=== PATIENT | female | born 1960 | race Caucasian/White ===

== ENCOUNTER → 2020-05-19 14:55 | Outpatient (CLI) | payer OTHER, SELFPAY ==
--- NOTE | ~2020-05-19 | MR_ITS ---
EXAMINATION: MR shoulder RT wo con DATE: 05/19/2020 15:52 INDICATION: Anterior and posterior right shoulder pain. TECHNIQUE: Magnetic resonance imaging (MRI) of the right shoulder was performed without intravenous c ontrast. Sequences included axial PD-weighted FS FSE, coronal oblique PD-weighted FS FSE and T2-weigh dolores FS FSE, and sagittal oblique T2-weighted FS FSE and T1-weighted FSE. COMPARISON: None. FINDINGS: Coracoacromial arch: The acromion undersurface is flat in morphology (type I). There is severe acromioclavicular joint ost eoarthritis including inferiorly directed osteophytes. There is mild subacromial/subdeltoid bursitis. Rotator cuff: There is mild supraspinatus tendinopathy and moderate infraspinatus tendinopathy. Teres minor tendon is normal. There is mild subscapularis tendinopathy. No tear. There is no asymmetric fatty atrophy of the rotator cuff muscle bellies. Biceps tendon and glenoid labrum: Biceps tendon is in bicipital groove. There is mild intra-articular biceps tendinopathy. There is deg eneration of the superior labrum without well-defined tear. Fluid: There is no glenohumeral joint effusion. Bones/cartilage: Humeral head cartilage is normal. There is shallow partial-thickness cartilage loss of posterior tom oid with subchondral edema-like marrow signal intensity and subchondral cysts. IMPRESSION: 1. Moderate rotator cuff tendinopathy. No tear. 2. Mild glenoid chondrosis. 3. Mild subacromial/subdeltoid bursitis. 4. Severe acromioclavicular joint osteoarthritis. 5. Mild intra-articular biceps tendinopathy. Reviewed, dictated and finalized at location A.
== END ==
PROVIDERS: PCP Nurse Practitioner Family; Visit Provider Nurse Practitioner Family
DX: M75.51 Bursitis of right shoulder (principal); M19.011 Primary osteoarthritis, right shoulder
CPT/HCPCS: 73221

== ENCOUNTER 2023-08-23 14:54 | Outpatient (CLI) | payer OTHER, SELFPAY ==
[2023-08-23 17:25] LABS: Free T4 Free Thyroxine 1.24 ng/mL (0.78-2.19)
[2023-08-29 06:54] LABS: Thyroid Peroxidase Antibodies <1 IU/mL (<9)
== END 2023-08-23 14:55 | disposition home or self-care (01) ==
LOC: ANHWCLAB 14:56
PROVIDERS: PCP Nurse Practitioner Family; Visit Provider Internal Medicine Endocrinology, Diabetes & Metabolism
DX: E04.1 Nontoxic single thyroid nodule (principal)
CPT/HCPCS: 36415; 84439; 84443; 86376

== ENCOUNTER 2023-09-06 12:45 | Outpatient (CLI) | payer OTHER, SELFPAY ==
--- NOTE | ~2023-09-06 | US_ITS ---
EXAMINATION: US FNA w image guidance DATE: 09/06/2023 13:41 INDICATION: Right thyroid nodule TECHNIQUE: A time-out was performed to verify the patient's name, date of , and procedure to be performed . The procedure and its benefits and risks were discussed with the patient. Risks specifically discus sed included bleeding and infection. The patient understood the risks and agreed to proceed. The neck was prepped and draped in the usual sterile manner. 5 mL 1% lidocaine was used for local anesthesia . 6 passes were made with a 25G needle into the lesion. Appropriate needle location was documented with continuous sonographic guidance. A sterile bandage was applied. There were no immediate compli cations. FINDINGS: Grayscale ultrasound images demonstrate biopsy needles advanced into a 2.0 cm TI RADS 5 solid hypoech oic nodule with punctate internal echogenic foci in the inferior right thyroid. IMPRESSION: 1. Successful ultrasound-guided fine needle aspiration of 2.0 cm TI RADS 5 right thyroid nodule. Reviewed, dictated and finalized at location A. METALS ENGRAVER HAND IMPRESSION: 1. Successful ultrasound-guided fine needle aspiration of 2.0 cm TI RADS 5 rig ht thyroid nodule.
== END 2023-09-06 12:46 | disposition home or self-care (01) ==
PROVIDERS: PCP Nurse Practitioner Family; Visit Provider Internal Medicine Endocrinology, Diabetes & Metabolism
DX: E04.1 Nontoxic single thyroid nodule (principal)
CPT/HCPCS: 10005; 88173; 88305

== ENCOUNTER 2024-03-28 13:17 | Outpatient (CLI) | payer OTHER, SELFPAY ==
[2024-03-28 15:17] LABS: Free T4 Free Thyroxine 1.17 ng/mL (0.78-2.19)
== END 2024-03-28 13:18 | disposition home or self-care (01) ==
LOC: ANHWCLAB 13:19
PROVIDERS: PCP Nurse Practitioner Family; Visit Provider Internal Medicine Endocrinology, Diabetes & Metabolism
DX: E04.1 Nontoxic single thyroid nodule (principal)
CPT/HCPCS: 36415; 84439; 84443

== ENCOUNTER 2025-04-23 15:54 | Inpatient (IN) | payer OTHER, SELFPAY ==
[2025-04-23] VITALS (17 sets, daily range): BP systolic 98–162; BP diastolic 58–88; PULSE 71–106; RESP 14–26; TEMP 36.4–36.8; O2SAT 96–100; BMI 24.5
--- NOTE | 2025-04-23 15:56 | ECG_ITS ---
Test Date: 2025-04-23 15:59:45 Measurements Intervals [place] Rate: 103 P: 72 MN: 138 QRS: 62 QRSD: 75 T: 50 QT: 336 QTc: 440 Interpretive Statements SINUS TACHYCARDIA LEFT ATRIAL ENLARGEMENT HIGH ST ELEVATION MYOCARDIAL INFARCT- ACUTE RECIPROCAL ST DEPRESSION IN INFERIOR LEADS BASELINE ARTIFACT- I, II, AVR, AVL, AVF, V1-V6 ABNORMAL ECG No previous ECG available for comparison Electronically Signed On 04-23-2025 16:28:51 CDT by Augusto Agarwal D.O.
--- NOTE | 2025-04-23 16:04 | PC.NURSE ---
[facility] [address] [facility] [address] [facility] 1603
--- NOTE | 2025-04-23 16:09 | ED_ITS ---
HPI - Chest Pain General Chief Complaint: Chest Pain Stated Complaint: chest pain Time Seen by Provider: 04/23/25 16:09 Source: patient Mode of arrival: ambulatory Limitations: no limitations History of Present Illness HPI narrative: Patient presents with a substernal chest pain. She states this started Monday and has persisted. This has never happened before. Does not follow with a slab installer. It is nonradiating. She thought perhaps she was dehydrated. Nauseated and vomiting. Had been diaphoretic. Endorses being a little short of breath but because has noticed increase in thick salivary secretions, with clear/white sputum. Cardiac risk factors HTN: No HLD: No DM: No Obese: No Smoker: No (stated upon HPI - listed as current in Social history) Personal history MO/TIA/CVA: No Fam Hx MO in first degree relative <65yo: Father and brother (57 and 56 respectively) Related Data Home Medications ?Medication ?Instructions ?Recorded ?Confirmed ?Last Taken ?Type ibuprofen 400 mg tablet 800 mg PO TID PRN pain 08/23/23 04/23/25 04/22/25 History multivitamin (Multiple Vitamins 1 tablet PO DAILY 08/23/23 04/23/25 Unknown History tablet) alprazolam 2 mg tablet (Xanax) 2 mg PO QHS PRN anxiety 03/28/24 04/23/25 03/31/25 History cyclobenzaprine 10 mg tablet 10 mg PO TID PRN muscle spasm 04/23/25 04/23/25 04/21/25 History hydroxyzine HCl 50 mg tablet 100 mg PO QHS 04/23/25 04/23/25 04/22/25 History Allergies Allergy/AdvReac Type Severity Reaction Status Date / Time Penicillins Allergy Severe Anaphylactic Verified 04/23/25 18:04 Shock [facility] Past Medical History Medical History Thyroid nodule Cervical cancer Surgical History Surgical History History of hysterectomy with bilateral oophorectomy Family History Family History Mother Breast cancer Sibling Myocardial infarction, Onset Age: 56 Father Acute myocardial infarction, Onset Age: 57 Social History Social History (Updated 08/23/23 @ 14:15 by Cyn Silver [facility]) Smoking packs per day: 0.5 Smoking cigarettes per day: 10.0 Smoking status: Current some day smoker Tobacco type: cigarettes Additional smoking assessment comments: 1/2 pack to a pack a day Alcohol intake: current Drinks per week: 5 Alcohol use details: Wine occasionally Substance use: never Do You Feel Safe in your Home?: Yes Lack of Transportation: No Lack of Food: Never True Current Housing: I Have Housing Concerned About Future Housing: No Difficulty Paying Gas/Electric Bills: No Difficulty Paying for Meds: No Currently Unemployed: No Education: High School Diploma/GED Difficulty w/ Childcare or Family Care: No Spiritual care concerns: No Exam 2 Narrative: GENERAL: Well-appearing, well-nourished, in mild acute distress. HEAD: Normocephalic, atraumatic. EYES: Non injected, non icteric ENT: Nares clear, no rhinorrhea or epistaxis. Gross auditory acuity intact. NECK: Supple. No meningismus. CHEST: Speaking in full sentences. No respiratory distress. HEART: Tachycardic rate and rhythm. . ABDOMEN: Soft, nondistended. EXTREMITIES: Normal range of motion. No lower extremity edema. SKIN: Warm, dry, no rash. NEURO: No focal deficits. Alert and oriented. Answering questions. Following commands. Normal speech without aphasia or dysarthria. PSYCH: Normal mood and affect. Course Vital Signs Vital signs: Vital Signs Temperature 97.6 F 04/23/25 16:03 Pulse Rate 106 H 04/23/25 16:03 Respiratory Rate 18 04/23/25 16:03 Blood Pressure 162/80 H 04/23/25 16:03 Pulse Oximetry 100 04/23/25 16:03 Temperature 98.3 F 04/24/25 08:00 Pulse Rate 87 04/24/25 10:00 Respiratory Rate 20 04/24/25 08:00 Blood Pressure 111/49 L 04/24/25 08:00 Pulse Oximetry 99 04/24/25 08:00 Oxygen Delivery Room Air 04/24/25 08:00 MDM - Chest Pain MDM Narrative Medical decision making narrative: Patient presents with chest pain that has been present since Monday. In the emergency department she is afebrile with vital signs notable for hypertension and tachycardia. EKG concerning for STEMI particularly ST elevation seen in V2 and aVL also with ST depression in V3 V4 in the inferior leads. STEMI activated and immediately went to evaluate patient; joined soon after by slab installer Dr Kaur who concurs and will take patient to label maker after reviewing EKG. AST elevated (possible marker for cardiac enzyme). Mild leukocytosis and elevated hemoglobin hematocrit. This is likely due to hemoconcentration. HEART SCORE History 2 highly suspicious 1 moderately suspicious 0 slightly suspicious History score [address] depression/elevation not due to LBBB, LVH, or digoxin [address] depression but LBBB, LVH, nonspecific repolarization changes 0 normal ECG score 2 Age 2 >/= 65 1 45-64 0 <45 Age score 1 Risk factors (HTN, hypercholesterolemia, DM, obesity with BMI >30, current smoker or cessation </=3mo), positive fam hx with parent or sibling with CVD before age 65, atherosclerotic disease (prior MO, PCI/CABG, CVA/TIA, or peripheral arterial disease) 2 >/= 3 risk factors or history of atherosclerotic dz 1 - 1-2 risk factors 0 no known risk factors Risk factor score 1 (family history - also possible smoking history based on social history in EMR though patient denied smoking during HPI) Initial Troponin 2 >3 times normal limit 1 1-3 times normal limit 0 less than or equal to normal limit Troponin score 2 (37 x upper limit normal) Total HEART Score 7 == Critical Care: 1 or more vital organ systems impaired with a high probability of imminent or life-threatening deterioration in the patient's condition requiring frequent personal assessment and manipulation of the patient's condition. This included time spent evaluating the patient, speaking with EMS pre-hospital personnel and family, reviewing/interpreting laboratory/imaging studies, discussing the case with consultants or admitting teams, retrieving data and reviewing charts, monitoring for decompensation, documenting the visit, and performing bundled procedures exclusive of separately billed procedures. Lab Data Attestation: I reviewed the patient's lab results. 04/24/25 07:06 04/24/25 07:05 ECG Data EKG #1: Attestation: I personally reviewed and interpreted this ECG as follows: ECG completion date: 04/23/25 ECG completion time: 15:59 Interpretation: Sinus tachycardia at a rate of 103 beats per minute. NC interval 138. QRS 75. QT/QTC 336/395. Good R-wave progression across the precordial leads. No T-wave inversions. There has ST elevation in V2 as well as ST depression in V3 and V4 in significant ST depressions in the inferior leads [address] elevation in aVL. Critical Care Time Critical Care Time Critical Care Time: Yes Total Critical Care Time: 15 Discharge Plan Discharge Clinical Impression: Chest pain, ST elevation (STEMI) myocardial infarction, Elevated troponin Patient Disposition: Still a Patient Condition: Stable
--- NOTE | 2025-04-23 16:12 | PM.IMHP ---
H&P: HPI History of Present Illness Date/Time: 04/23/25 16:12 Chief Complaint: Chest pain Narrative: 64-year-old woman who is an active tobacco smoker presents with chest pain. Substernal that occur on Monday and has been on and off but progressively worsening for the last few days prompting the patient to present to the emergency room finally for evaluation. Continues to have chest discomfort with some mild shortness of breath. Review of Systems Cardiovascular: Cardiovascular: Reports as per HPI Respiratory: Respiratory: Reports as per HPI [facility] Past Medical History Medical History (Updated 04/23/25 @ 16:15 by Mac Kaur MD) Thyroid nodule Cervical cancer Surgical History Surgical History (Updated 08/23/23 @ 14:17 by Cyn Silver CMA) History of hysterectomy with bilateral oophorectomy Family History Family History (Updated 08/23/23 @ 14:16 by Cyn Silver CMA) Mother Breast cancer Sibling Myocardial infarction Social History Social History (Updated 08/23/23 @ 14:15 by Cyn Silver CMA) Smoking status: Current every day smoker Additional smoking assessment comments: 1/2 pack to a pack a day Alcohol intake: current Alcohol use details: Wine occasionally Substance use: never Meds Home Medications and Allergies Home Medications ?Medication ?Instructions ?Recorded ?Confirmed ?Type ibuprofen 400 mg tablet 400 mg PO TID PRN 08/23/23 03/28/24 History multivitamin (Multiple Vitamins 1 tablet PO DAILY 08/23/23 03/28/24 History tablet) alprazolam 2 mg tablet (Xanax) 2 mg PO QHS PRN 03/28/24 History Allergies Allergy/AdvReac Type Severity Reaction Status Date / Time Penicillins Allergy Severe Anaphylactic Verified 03/28/24 13:00 Shock Exam Const: General: uncomfortable HENMT: Mouth: Yes moist mucous membranes Eyes: EOM: EOMs intact bilaterally Neck: Neck: no JVD Resp: Effort & Inspection: normal respiratory effort Auscultation: rales Cardio: Rate: tachycardic Rhythm: regular rhythm Neuro: Speech: normal speech Extrem: General: no pedal edema Assessment and Plan Assessment and plan (1) STEMI (ST elevation myocardial infarction): Code(s): I21.3 - ST elevation (STEMI) myocardial infarction of unspecified site Status: Acute Plan 64-year-old woman who is an active tobacco smoker presents with chest pain whose clinical presentation is consistent with ST-elevation PA ST-elevation PA -given her ongoing chest discomfort, was recommended to her to proceed with cardiac catheterization with possible PCI -the risk and benefits were explained to the patient who agreed to proceed forward -obtain transthoracic echocardiogram
--- NOTE | 2025-04-23 16:13 | PCCCNOTE ---
Pt is currently in the ED and seen by Dr. TAVERAS, plans to go to up to the [facility] laboratory for STEMI. With the pt's permission called the Son Vitor at [phone] however [facility] to [facility] requesting a return call. The message to this son is to please notify Gabe the other son and POA she is here and to contact, Aunt Ruchi as well.-uzair
--- NOTE | 2025-04-23 16:15 | WPDHPUPDATE1 ---
History and Physical Update Update Date/Time: 04/23/25 16:15 History and Physical has been reviewed, including an updated exam of the patient. There are NO changes in the patient's condition. Risks, benefits, and alternatives have been discussed and questions answered. Patient agrees to proceed with procedure.
--- NOTE | 2025-04-23 16:16 | P.SEDATION_ITS ---
Moderate Sedation Note-Pt Data Patient Data Allergies Allergy/AdvReac Type Severity Reaction Status Date / Time Penicillins Allergy Severe Anaphylactic Verified 03/28/24 13:00 Shock Home Medications ?Medication ?Instructions ?Recorded ?Confirmed ?Type ibuprofen 400 mg tablet 400 mg PO TID PRN 08/23/23 03/28/24 History multivitamin (Multiple Vitamins 1 tablet PO DAILY 08/23/23 03/28/24 History tablet) alprazolam 2 mg tablet (Xanax) 2 mg PO QHS PRN 03/28/24 History Current Medications: Active Medications Heparin Sodium (Porcine) (Heparin Sodium 5,000 Units/Ml Vial) 0 units IV PUSH PRN PRN PRN Reason: aPTT less than 55 seconds Heparin Sodium (Porcine) (Heparin Sodium 5,000 Units/Ml Vial) 0 units IV PUSH PRN PRN PRN Reason: aPTT 55 - 70 seconds Heparin Sodium/Dextrose (Heparin Sodium/D5w 100 Units/Ml) 25,000 units in 250 mls @ 0 mls/hr IV CONT NICOLASA; Protocol Sedation/Anesthesia: No previous sedation/anesthesia problems (including family history). [facility] Past Medical History Medical History (Updated 04/23/25 @ 16:15 by Mac Kaur MD) Thyroid nodule Cervical cancer Surgical History Surgical History (Updated 08/23/23 @ 14:17 by Cyn Silver CMA) History of hysterectomy with bilateral oophorectomy Family History Family History (Updated 08/23/23 @ 14:16 by Cyn Silver CMA) Mother Breast cancer Sibling Myocardial infarction Social History Social History (Updated 08/23/23 @ 14:15 by Cyn Silver CMA) Smoking status: Current every day smoker Additional smoking assessment comments: 1/2 pack to a pack a day Alcohol intake: current Alcohol use details: Wine occasionally Substance use: never Mod Sed Physical Exam Physical Exam Pre Procedural Exam: Normal: Heart Rhythm and Variation: Lungs (rales) and Heart Rate (tachycardic) Hours since solid foods: 6 Hours since liquid intake: 6 Mallampati Classification: class II Internal Medicine - PN: Obj Da Vital Signs Vital Signs: Vital Signs - 24 hr 04/23/25 16:03 04/23/25 16:15 Temperature 36.4 C Pulse Rate 106 H 102 H Respiratory Rate 18 Blood Pressure 162/80 H Pulse Oximetry 100 Meds/Results Medications: Active Medications Generic Name Dose Route Start Last Admin Trade Name Freq PRN Reason Stop Dose Admin Heparin Sodium (Porcine) 0 units 04/23/25 16:09 Heparin Sodium 5,000 Units/Ml Vial IV PUSH PRN PRN aPTT less than 55 seconds Heparin Sodium (Porcine) 0 units 04/23/25 16:09 Heparin Sodium 5,000 Units/Ml Vial IV PUSH PRN PRN aPTT 55 - 70 seconds Heparin Sodium/Dextrose 25,000 units in 250 mls @ 0 mls/hr 04/23/25 16:10 Heparin Sodium/D5w 100 Units/Ml IV CONT NICOLASA Protocol 12 UNITS/KG/HR ASA Classification/Sedation ASA Classification/Sedation ASA Class: IV Emergent: Yes Risks: Risks, benefits and alternatives explained and patient/family accepted plan for sedation. Patient re-evaluated immediately prior to sedation.
--- NOTE | 2025-04-23 16:25 | PCCCNOTE ---
Pt's son Vitor did call back from [phone] and was updated to the pt's status. Stated he was on his way up to the facility-uzair
[2025-04-23 16:26] LABS: Basophils Absolute Auto 0.1 K/mm3 (0.0-0.1); Basophils Percent Auto 0.6 % (0.2-1.2); Eosinophils Percent Auto 0.4 % (0-4.4); Hematocrit 52.4 % (37.0-47.0); Hemoglobin 17.5 g/dL (12.0-15.0); Immature Granulocyte Absolute 0.03 K/mm3 (0.00-0.031); Immature Granulocyte Percent A 0.3 % (0-0.5); Immature Platelet Fraction Pct 6.9 % (0.9-11.2); Lymphocytes Absolute Auto 1.86 K/mm3 (0.9-3.2); Mean Corpuscular HGB Conc 33.4 g/dl (32-36); Mean Corpuscular Hemoglobin 29.9 pg (26-34); Mean Corpuscular Volume 89.4 fl (80-100); Mean Platelet Volume 10.8 fl (7.4-10.4); Monocytes Absolute Auto 0.7 K/mm3 (0.1-0.6); Monocytes Percent Auto 7.2 % (2.6-8.5); Neutrophils Absolute Auto 7.6 K/mm3 (1.3-6.7); Neutrophils Percent Auto 73.5 % (45.5-73.1); Platelet Count Result 212 k/mm3 (150-375); Red Blood Count 5.86 M/mm3 (4.2-5.4); Red Cell Distribution Width 13.3 % (11.5-14.5); White Blood Count 10.3 K/mm3 (4.5-10.0)
[2025-04-23 16:37] LABS: Alanine Aminotransferase 24 U/L (6-35); Albumin Level 4.4 g/dL (3.5-5.1); Alkaline Phosphatase 105 U/L (38-126); Anion Gap 11 mmol/L (4-12); Aspartate Amino Transferase 52 U/L (14-36); Bilirubin,Total 0.5 mg/dL (0.2-1.3); Blood Urea Nitrogen 14 mg/dL (7-17); Calcium 9.4 mg/dL (8.4-10.2); Carbon Dioxide 21 mmol/L (22-30); Chloride 102 mmol/L (98-107); Estimated CRCL calculation 58 ml/min; Estimated Glomerular Filt Rate > 60; Glucose 127 mg/dL (65-110); Lipase 92 U/L (23-300); Potassium 4.4 mmol/L (3.4-5.0); Sodium 134 mmol/L (137-145); Total Protein 8.1 g/dL (6.3-8.2)
[2025-04-23 16:40] LABS: Partial Thromboplastin Time 29.3 Seconds (22.3-36.8); Prothrombin Time 13.1 Seconds (11.1-14.7)
--- NOTE | 2025-04-23 16:55 | P.PCNCC_ITS ---
Cardiac Cath Procedure Note Date of procedure:: 04/23/25 Performing physician:: CATHETERIZATION LABORATORY REPORT Procedure Date: 04/23/2025 Referring Physician: Dr. French Anesthesia: Versed and Fentanyl were ordered and given in my presence at 1632, procedure ended at 1652. Supervision of nurse, Irma Maldonado monitored moderate sedation with 2mg Versed and 100mcg Fentanyl was provided for 20 minutes. Pre-op Diagnosis: ST-elevation NV Post-op Diagnosis: Multivessel coronary artery disease Procedure(s): Left heart catheterization with coronary angiography Ultrasound-guided arterial access Angio-Seal closure device Access Site: Right common femoral artery Brief History and Clinical Indications: 64-year-old woman who is an active tobacco smoker presents with chest pain whose presentation is consistent with ST-elevation NV for which she was emergently brought to the cardiac catheterization lab to define her coronary anatomy with possible PCI. All risks, benefits and alternatives to left heart catheterization with or witho ut percutaneous coronary intervention was discussed at length with the patient. Risk of complications including but not limited to bleeding, infection, arrhythmia, stroke, worsening kidney function, blood loss, groin hematoma, limb loss, emergency coronary artery bypass grafting, and even were discussed with the patient and all questions were answered. The patient understood and wished to proceed. Time out called, patient name, date of , medical record number, allergies, procedure performed, identify Viscosity Worker, patient and staff member concurred with accurate data, procedure carried on. Findings: LEFT HEART CATHETERIZATION FINDINGS: 1. Left main: The left main coronary artery is widely patent without any significant obstructive disease. 2. Left anterior descending: The LAD provides an arcade of diagonals all of which are small size vessels that are <2mm diameter. The D1 vessel while small in diameter is long with a 99% ostial stenosis. KANDI 3 flow 3. Left circumflex: The left circumflex artery provides 2 OM branches. At the trifurcation where the left circumflex splits to provide the OM1 and OM2 vessels, there is a 70-80% stenosis. OM2 is approximately a 2.5mm vessel and provides a moderate size territory while OM1 is a 1.5mm size vessel supplying a small territory. KANDI 3 flow 4. Right coronary artery: The RCA is a dominant vessel with a 50% stenosis in its midbody. This is approximately a 2.5mm size vessel. KANDI 3 flow 5. Left ventricle: A. End-diastolic pressure 36 mmHg. B. LV gram deferred. C. No significant gradient across aortic valve on catheter pullback. 6. Opening AO pressure 175/83 and closing AO pressure 132/69 Description of Procedure: Informed consent signed and placed in the chart. Patient transferred to [facility] conservation laborer room. Prepped and draped in usual sterile fashion. 2% lidocaine injected subcutaneously in right groin area. Ultrasound was used to identified the right common femoral artery and under ultrasound and fluoroscopy guidance, access was obtained and micro puncture sheath was inserted and exchanged out for a 6 Lithuanian prelude sheath. J wire advanced under fluoroscopy. 5F diagnostic catheter engaged Right Coronary Artery. 6F EBU3.5 Guide catheter engaged Left Main Coronary Artery. Multiple orthogonal angiogram obtained and reviewed. Given the small caliber nature of her vessels, intracoronary nitroglycerin 300 mcg was given and images were re-obtained. JR4 diagnostic catheter crossed aortic valve to obtain LVEDP, LV angiogram deferred. Assessment: Multivessel CAD Post Operative Condition: Stable No significant blood loss Disposition: ICU Plan: Continue heparin drip and trend troponin to peak. Obtain a transthoracic echocardiogram. Medical management of her multivessel coronary artery disease. Mac Kaur Interventional Cardiology
--- NOTE | 2025-04-23 17:29 | ADMGEN ---
This patient, Jeri Barcenas, was admitted to Intensive Care Unit-6. Patient/family oriented to hospital policies and general routines including ID bracelet, bed and alarms, visiting hours, pain management, procedures, bathroom and other care routines, personal items, smoking policy, room service/diet, and visiting hours. Information on how to activate the Rapid Response Team has been discussed. Patient/Family are encouraged to report perceived risks to care and to ask questions if they do not understand what they are told or what they should do.
[2025-04-23] MEDS: ATORVASTATIN 40 MG TABLET 80 MG PO (18:19)
[2025-04-23] MEDS: ISOSORBIDE MONONITRATE 30 MG TAB.ER.24H PO (18:19)
[2025-04-23] MEDS: SODIUM CHLORIDE 0.9% IV 1,000 ML 125 ML IV CONT (18:19)
[2025-04-23] MEDS: FUROSEMIDE INJ 40 MG/4 ML VIAL IV PUSH (18:19)
[2025-04-23 18:22] LABS: Basophils Percent Auto 0.4 % (0.2-1.2); Eosinophils Percent Auto 0.3 % (0-4.4); Hematocrit 45.4 % (37.0-47.0); Hemoglobin 15.5 g/dL (12.0-15.0); Immature Granulocyte Absolute 0.04 K/mm3 (0.00-0.031); Immature Granulocyte Percent A 0.4 % (0-0.5); Lymphocytes Absolute Auto 2.46 K/mm3 (0.9-3.2); Lymphocytes Percent Auto 22.9 % (18.3-44.2); Mean Corpuscular HGB Conc 34.1 g/dl (32-36); Mean Corpuscular Hemoglobin 30.1 pg (26-34); Mean Corpuscular Volume 88.2 fl (80-100); Mean Platelet Volume 10.9 fl (7.4-10.4); Monocytes Absolute Auto 0.7 K/mm3 (0.1-0.6); Monocytes Percent Auto 6.7 % (2.6-8.5); Neutrophils Absolute Auto 7.5 K/mm3 (1.3-6.7); Neutrophils Percent Auto 69.3 % (45.5-73.1); Platelet Count Result 182 k/mm3 (150-375); Red Blood Count 5.15 M/mm3 (4.2-5.4); Red Cell Distribution Width 13.2 % (11.5-14.5); White Blood Count 10.7 K/mm3 (4.5-10.0)
[2025-04-23 18:45] LABS: INR 1.1
[2025-04-23 18:47] LABS: Partial Thromboplastin Time 54.6 Seconds (22.3-36.8)
[2025-04-23 19:53] LABS: MRSA (PCR) NOT DETECTED (NOT DETECTE)
[2025-04-23] MEDS: hydrOXYzine HCL 25 MG TABLET 100 MG PO (20:40)
[2025-04-23 20:45] LABS: Cholesterol 232 mg/dL (0-200); HDL Direct 62 mg/dL; Triglycerides 158 mg/dL (<150)
[2025-04-23 20:52] LABS: NT Pro B Type Natriuretic Pept 3100 pg/mL (19.9-100)
[2025-04-23 20:56] LABS: LDL Cholesterol Direct 123 mg/dL
[2025-04-23 21:04] LABS: Hemoglobin A1C. 5.4 % (<5.7)
[2025-04-24] VITALS (16 sets, daily range): BP systolic 102–130; BP diastolic 49–77; PULSE 65–87; RESP 16–24; TEMP 36.7–36.8; O2SAT 97–100
--- NOTE | 2025-04-24 | ECHO_ITS ---
Patient Info Name: Jeri Barcenas Age: 64 years : 1960 Gender: Female Ht: 65 in Wt: 147 lbs BSA: 1.76 m2 HR: 73 bpm BP: 126 / 77 mmHg Technical Quality: Good Exam Date: 04/24/2025 7:24 AM Patient Status: I Admit Date: 04/23/2025 Exam Type: CA echo doppler color flow Complete two-dimensional, color flow and Doppler transthoracic echocardiogram is performed. Staff Referring Physician: Elian Meadows MD Grades 1 Thru 6 Home Teacher: Hui Rodgers Attending Provider: Alvina Lane Summary 1. Complete two-dimensional, color flow and Doppler transthoracic echocardiogram is performed. 2. The left ventricle is normal in size and systolic function. The left ventricular ejection fraction is visually estimated to be 60-65%. There is mild hypokinesis of distal anterolateral and distal inferolateral wall. 3. The right ventricle is normal in size and systolic function. 4. There is small pericardial effusion. Left Ventricle The left ventricle is normal in size and systolic function. The left ventricular ejection fraction is visually estimated to be 60-65%. There is mild hypokinesis of distal anterolateral and distal inferolateral wall. Right Ventricle The right ventricle is normal in size and systolic function. Left Atria The left atrium is normal size. Right Atria The right atrium is normal size. Atrial Septum The atrial septum is not well visualized. Aortic Valve The aortic valve is not well visualized. Doppler gradients across the valve does not suggest hemodynamically significant stenosis. Pulmonic Valve The pulmonic valve is not well visualized. There is no color Doppler evidence of pulmonic valve regurgitation. Mitral Valve The mitral valve leaflets are sclerotic. There is mitral annular calcification. There is no mitral stenosis. There is no mitral regurgitation. Tricuspid Valve The tricuspid valve is grossly normal. There is trace tricuspid regurgitation. Pericardium/Pleural There is small pericardial effusion. Inferior Vena Cava Normal inferior vena cava with >50% collapse upon inspiration consistent with normal right atrial pressure, 3 mmHg. Aorta The aortic root at the level of the sinus of Valsalva measures 3.2 cm in diameter. Left Ventricular Outflow Tract Name Value Normal LVOT 2D LVOT Diameter 1.9 cm LVOT Doppler LVOT Peak Velocity 88 cm/s LVOT Peak Gradient 3 mmHg LVOT Mean Gradient 2 mmHg LVOT VTI 18 cm LVOT VTI/AV VTI Ratio 0.7 LVOT Stroke Volume 53 ml LVOT CO 3.6 l/min LVOT CI 2.1 l/min/m2 Pulmonic Valve Name Value Normal PV Doppler PV Peak Velocity 116 cm/s PV Peak Gradient 5 mmHg Mitral Valve Name Value Normal MV Diastolic Function MV E Peak Velocity 65 cm/s MV A Peak Velocity 119 cm/s MV E/A 0.5 MV Decel Time (PW) 246 ms MV Annular TDI MV E/e' (Septal) 15.1 MV E/e' (Lateral) 15.4 MV E/e' (Average) 15.2 Tricuspid Valve Name Value Normal TV Regurgitation Doppler TR Peak Velocity 215 cm/s TR Peak Gradient 19 mmHg Estimated PAP/RSVP RA Pressure 3 mmHg <=5 PA Systolic Pressure 22 mmHg <36 RV Systolic Pressure 22 mmHg <36 TV Annular TDI TV Lateral Chinyere s' Velocity 14.8 cm/s >=9.5 Aortic Valve Name Value Normal AV Doppler AV Peak Velocity 135 cm/s AV Peak Gradient 7 mmHg AV Mean Gradient 4 mmHg AV VTI 25 cm AV Area (Cont Eq VTI) 2.1 cm2 >=3.0 AV Area (Cont Eq Luciano) 1.9 cm2 AV DI (Luciano) 0.66 AV Regurgitation 2D LVOT Area 3.0 cm2 Ventricles Name Value Normal LV Dimensions 2D/MM IVS Diastolic Thickness (2D) 1.1 cm 0.6-1.0 LVID Diastole (2D) 3.0 cm 3.8-5.2 LVIW Diastolic Thickness (2D) 1.3 cm 0.6-0.9 LVID Systole (2D) 2.0 cm 2.2-3.5 LVOT Diameter 1.9 cm LV Mass (2D Cubed) 111.53 g 67.00-162.00 LV Mass Index (2D Cubed) 63 g/m2 43-95 Relative Wall Thickness (2D) 0.84 <=0.42 LV Fractional Shortening/Ejection Fraction 2D/MM LV Fractional Shortening (2D) 34 % 27-45 LV EF (2D Teichholz) 65 % LV Diastolic Volume (4C MOD) 39 ml LV EF (4C MOD) 64 % LV Diastolic Volume (2C MOD) 46 ml LV EF (2C MOD) 65 % LV Diastolic Volume (BP MOD) 44 ml 46-106 LV Diastolic Volume Index (BP MOD) 25 ml/m2 29-61 LV Systolic Volume (BP MOD) 15 ml 14-42 LV Systolic Volume Index (BP MOD) 9 ml/m2 8-24 LV EF (BP MOD) 65 % 54-74 LV Diastolic Length (4C) 6.9 cm LV Systolic Length (4C) 5.9 cm LV Stroke Volume (4C MOD) 25 ml Atria Name Value Normal LA Dimensions LA Volume (4C A-L) 23 ml LA Volume (BP A-L) 26 ml RA Dimensions RA Systolic Major [place] Length (4C) 4.4 cm 2.2-2.8 RA Area (4C) 9.7 cm2 <=18.0 Report Signatures
[2025-04-24] MEDS: HEPARIN SOD/D5W 100 UNITS/ML 25,000 UNITS/250 ML BAG 8 UNITS IV CONT (00:19)
[2025-04-24 07:14] LABS: Basophils Absolute Auto 0.1 K/mm3 (0.0-0.1); Basophils Percent Auto 0.7 % (0.2-1.2); Eosinophils Absolute Auto 0.1 K/mm3 (0-0.3); Eosinophils Percent Auto 0.8 % (0-4.4); Hematocrit 45.2 % (37.0-47.0); Hemoglobin 15.1 g/dL (12.0-15.0); Immature Granulocyte Absolute 0.02 K/mm3 (0.00-0.031); Immature Granulocyte Percent A 0.2 % (0-0.5); Lymphocytes Absolute Auto 2.31 K/mm3 (0.9-3.2); Lymphocytes Percent Auto 27.4 % (18.3-44.2); Mean Corpuscular HGB Conc 33.4 g/dl (32-36); Mean Corpuscular Hemoglobin 29.9 pg (26-34); Mean Corpuscular Volume 89.5 fl (80-100); Mean Platelet Volume 10.8 fl (7.4-10.4); Monocytes Absolute Auto 0.8 K/mm3 (0.1-0.6); Monocytes Percent Auto 8.9 % (2.6-8.5); Neutrophils Absolute Auto 5.2 K/mm3 (1.3-6.7); Platelet Count Result 192 k/mm3 (150-375); Red Blood Count 5.05 M/mm3 (4.2-5.4); Red Cell Distribution Width 13.2 % (11.5-14.5); White Blood Count 8.4 K/mm3 (4.5-10.0)
[2025-04-24 07:25] LABS: Partial Thromboplastin Time 44.3 Seconds (22.3-36.8)
[2025-04-24] MEDS: HEPARIN SODIUM 5,000 UNITS/ML VIAL 4000 UNITS IV PUSH (07:34)
--- NOTE | 2025-04-24 08:32 | ECG_ITS ---
Test Date: 2025-04-24 09:26:58 Measurements Intervals [place] Rate: 79 P: 57 HI: 143 QRS: 60 QRSD: 71 T: 55 QT: 411 QTc: 472 Interpretive Statements SINUS RHYTHM POSSIBLE LEFT ATRIAL ENLARGEMENT CANNOT R/O SEPTAL INFARCT, AGE INDETERMINATE HIGH LATERAL ST ELEVATION MYOCARDIAL INFARCT- ACUTE RECIPROCAL ST DEPRESSION IN INFERIOR LEADS BASELINE ARTIFACT- I, II, AVR, AVL, V1, V6 ABNORMAL ECG Compared to ECG 04/23/2025 15:59:45 HEART RATE HAS DECREASED Electronically Signed On 04-24-2025 09:56:17 CDT by Augusto Agarwal D.O.
[2025-04-24] MEDS: METOPROLOL SUCCINATE EXT REL 25 MG TABCR PO (08:58)
[2025-04-24] MEDS: FUROSEMIDE INJ 40 MG/4 ML VIAL IV PUSH (08:58)
[2025-04-24] MEDS: ASPIRIN 81 MG ENTERIC TABLET PO (08:58)
[2025-04-24] MEDS: ISOSORBIDE MONONITRATE 30 MG TAB.ER.24H PO (08:59)
[2025-04-24] MEDS: MULTIVITAMINS THERAPEUTIC TAB (*BKC) 1 TABLET PO (08:59)
[2025-04-24 09:06] LABS: Alanine Aminotransferase 22 U/L (6-35); Albumin Level 3.7 g/dL (3.5-5.1); Alkaline Phosphatase 94 U/L (38-126); Anion Gap 8 mmol/L (4-12); Aspartate Amino Transferase 46 U/L (14-36); Bilirubin,Total 0.7 mg/dL (0.2-1.3); Blood Urea Nitrogen 13 mg/dL (7-17); Calcium 9.1 mg/dL (8.4-10.2); Carbon Dioxide 25 mmol/L (22-30); Chloride 101 mmol/L (98-107); Estimated CRCL calculation 60 ml/min; Estimated Glomerular Filt Rate > 60; Glucose 106 mg/dL (65-110); Potassium 4.2 mmol/L (3.4-5.0); Sodium 134 mmol/L (137-145); Total Protein 6.4 g/dL (6.3-8.2)
--- NOTE | 2025-04-24 09:32 | P.CONIN_ITS ---
Assessment and Plan Assessment and plan (1) STEMI (ST elevation myocardial infarction): Code(s): I21.3 - ST elevation (STEMI) myocardial infarction of unspecified site Status: Acute Assessment and Plan: Patient presented with chest pain that started on 04/20, worsened over the last today that prompted to come to the ER, found to have ST elevations in V2 and aVL, also ST depression in V3 and V4 . 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, was found to have multi-vessel disease, given the small caliber of the vessels no intervention was performed, medical management per Cardiology -continue aspirin atorvastatin, isosorbide dinitrate, metoprolol -currently on heparin infusion, call your Cardiology decide when to discontinue Plan DVT prophylaxis: Status post cardiac catheterization Stress ulcer prophylaxis: not indicated Nutrition: Heart healthy diet Code Status: Full code Critical Care Time Spent: 44 minutes Due to a high probability of clinically significant, life threatening deterioration, the patient required my highest level of preparedness to intervene emergently and I personally spent this critical care time directly and personally managing the patient. This critical care time included obtaining a history; examining the patient; pulse oximetry; ordering and review of studies; arranging urgent treatment with development of a management plan; evaluation of patient's response to treatment; frequent reassessment; and discussions with other providers. It was exclusive of separately billable procedures and treating other patients and teaching time. Please see Assessment and Plan section and the rest of the note for further information on patient assessment and treatment This dictation may have been done utilizing a voice recognition system. Attempts have been made to correct errors. However, there may be uncorrected grammatical, spelling, and recognitions errors present. [employer] Consultant Consult Note Consult date: 04/24/25 HPI: Jeri Barcenas is a 64 year old female with past medical history of tobacco use presents with chest pain to the ED on 04/23/2025. She stated that a substernal chest pain occurred on 04/18 2 minutes has been on a 0.4 AST worsened for the last couple of days prompting the patient presented the ED. Denied any radiation, diaphoresis. Complained of shortness of breath with her chest pain. EKG showed ST elevations in V2 and aVL and ST depression V3 and V4 in the inferior leads. 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 Patient was transferred to the ICU for further management Seen and examined the ICU this morning, is awake, alert, oriented, chest pain- free. Denies any other symptoms like shortness of breath, abdominal pain, nausea vomiting at this time. Hemodynamically stable, remains on heparin infusion Review of Systems 2 Review of Systems: All systems reviewed & are unremarkable except as noted in HPI and below [facility] Past Medical History Medical History (Updated 04/23/25 @ 17:07 by Sommer French MD) Thyroid nodule Cervical cancer Surgical History Surgical History (Updated 08/23/23 @ 14:17 by Cyn Silver CMA) History of hysterectomy with bilateral oophorectomy Family History Family History (Updated 04/23/25 @ 17:51 by TAMARA Vincent) Mother Breast cancer Sibling Myocardial infarction Father Acute myocardial infarction Social History Social History (Updated 08/23/23 @ 14:15 by Cyn Silver CMA) Smoking packs per day: 0.5 Smoking cigarettes per day: 10.0 Smoking status: Current some day smoker Tobacco type: cigarettes Additional smoking assessment comments: 1/2 pack to a pack a day Alcohol intake: current Drinks per week: 5 Alcohol use details: Wine occasionally Substance use: never Do You Feel Safe in your Home?: Yes Lack of Transportation: No Lack of Food: Never True Current Housing: I Have Housing Concerned About Future Housing: No Difficulty Paying Gas/Electric Bills: No Difficulty Paying for Meds: No Currently Unemployed: No Education: High School Diploma/GED Difficulty w/ Childcare or Family Care: No Spiritual care concerns: No Meds Home Medications and Allergies Home Medications ?Medication ?Instructions ?Recorded ?Confirmed ?Type ibuprofen 400 mg tablet 800 mg PO TID PRN pain 08/23/23 04/23/25 History multivitamin (Multiple Vitamins 1 tablet PO DAILY 08/23/23 04/23/25 History tablet) alprazolam 2 mg tablet (Xanax) 2 mg PO QHS PRN anxiety 03/28/24 04/23/25 History cyclobenzaprine 10 mg tablet 10 mg PO TID PRN muscle spasm 04/23/25 04/23/25 History hydroxyzine HCl 50 mg tablet 100 mg PO QHS 04/23/25 04/23/25 History Allergies Allergy/AdvReac Type Severity Reaction Status Date / Time Penicillins Allergy Severe Anaphylactic Verified 04/23/25 18:04 Shock Vital Signs Vital Signs - 24 hr 04/23/25 16:03 04/23/25 16:15 04/23/25 17:28 Temperature 97.6 F 98.3 F Pulse Rate 106 H 102 H 78 Respiratory Rate 18 16 Blood Pressure 162/80 H 132/79 Pulse Oximetry 100 99 Oxygen Delivery 04/23/25 17:28 04/23/25 17:28 04/23/25 17:29 Temperature Pulse Rate 83 81 Respiratory Rate 19 Blood Pressure 132/79 Pulse Oximetry 99 Oxygen Delivery Room Air 04/23/25 17:38 04/23/25 17:53 04/23/25 18:00 Temperature Pulse Rate 81 78 74 Respiratory Rate 20 14 Blood Pressure 134/68 141/65 H Pulse Oximetry 100 99 Oxygen Delivery 04/23/25 18:00 04/23/25 18:07 04/23/25 18:08 Temperature 98.2 F Pulse Rate 78 75 Respiratory Rate 22 H 16 Blood Pressure 146/84 H 151/82 H Pulse Oximetry 99 99 Oxygen Delivery 04/23/25 18:38 04/23/25 19:08 04/23/25 20:00 Temperature Pulse Rate 74 79 Respiratory Rate 18 20 Blood Pressure 152/84 H 105/88 Pulse Oximetry 99 99 Oxygen Delivery Room Air 04/23/25 20:00 04/23/25 20:00 04/23/25 20:08 Temperature 98.0 F Pulse Rate 99 87 88 Respiratory Rate 19 24 H Blood Pressure 98/58 L 98/58 L Pulse Oximetry 98 98 Oxygen Delivery 04/23/25 21:08 04/23/25 22:00 04/23/25 22:00 Temperature Pulse Rate 83 81 81 Respiratory Rate 26 H 22 H Blood Pressure 130/66 117/63 Pulse Oximetry 99 96 Oxygen Delivery 04/23/25 22:08 04/23/25 23:08 04/24/25 00:00 Temperature Pulse Rate 83 71 Respiratory Rate 20 22 H Blood Pressure 117/63 117/64 Pulse Oximetry 98 98 Oxygen Delivery Room Air 04/24/25 00:00 04/24/25 00:00 04/24/25 02:00 Temperature 98.3 F Pulse Rate 69 79 74 Respiratory Rate 16 Blood Pressure 112/52 L Pulse Oximetry 100 Oxygen Delivery 04/24/25 02:00 04/24/25 04:00 04/24/25 04:00 Temperature 98.2 F Pulse Rate 74 68 Respiratory Rate 23 H 20 Blood Pressure 130/66 123/68 Pulse Oximetry 99 98 Oxygen Delivery Room Air 04/24/25 04:00 04/24/25 06:00 04/24/25 06:00 Temperature Pulse Rate 72 73 73 Respiratory Rate 21 H Blood Pressure 126/77 Pulse Oximetry 97 Oxygen Delivery 04/24/25 08:00 04/24/25 08:00 04/24/25 08:00 Temperature 98.3 F Pulse Rate 77 77 77 Respiratory Rate 21 H 20 Blood Pressure 111/49 L Pulse Oximetry 99 99 Oxygen Delivery Room Air 04/24/25 08:58 Temperature Pulse Rate 78 Respiratory Rate Blood Pressure Pulse Oximetry Oxygen Delivery Exam 2 Narrative: General: Pleasant female, in no acute distress HEENT:? Pupils are equal and reactive, sclera is clear Neck:? Supple Respiratory:? Clear to auscultation bilaterally, no wheezing, adequate air entry Cardiac:? S1-S2 normal, regular rate and rhythm Abdomen:? Soft, nontender, nondistended, normoactive bowel sounds Extremities:? No edema, right groin without any hematoma or ecchymosis Neuro:? Patient is awake, alert, oriented, nonfocal Skin:? No skin lesions noted Psych:? Normal mentation and affect Results Labs 04/24/25 07:06 04/24/25 07:05 Labs: Short CBC 04/23/25 04/23/25 04/24/25 Range/Units 16:17 18:17 07:06 WBC 10.3 H 10.7 H 8.4 (4.5-10.0) K/mm3 Hgb 17.5 H 15.5 H 15.1 H (12.0-15.0) g/dL Hct 52.4 H 45.4 45.2 (37.0-47.0) % Plt Count 212 182 192 (150-375) k/mm3 BMP 04/23/25 04/24/25 16:17 07:05 Sodium 134 L 134 L Potassium 4.4 4.2 Chloride 102 101 Carbon Dioxide 21 L 25 BUN 14 13 Creatinine 0.79 0.76 Glucose 127 H 106 Calcium 9.4 9.1 Cardiac Enzymes 04/23/25 04/24/25 Range/Units 16:17 07:05 Troponin I 1.260 H* 2.730 H* (0.000-0.034) ng/mL Liver Function 04/23/25 04/24/25 Range/Units 16:17 07:05 Total Bilirubin 0.5 0.7 (0.2-1.3) mg/dL AST 52 H 46 H (14-36) U/L ALT 24 22 (6-35) U/L Alkaline Phosphatase 105 94 (38-126) U/L Albumin 4.4 3.7 (3.5-5.1) g/dL Hospitalist MIPS Advance Care Plan I have confirmed that the patient's Advanced Care Plan is present, code status is documented, or surrogate decision maker is listed in patient medical record.: Yes Medication Reconciliation I have utilized all available resources to obtain, update and review the patients current medications (includes all prescriptions, OTC, herbals, cannabis, and nutritional supplements).: Yes
--- NOTE | 2025-04-24 10:16 | PM.PNCARD ---
Progress Note: A&P Assessment and Plan (1) STEMI (ST elevation myocardial infarction): Code(s): I21.3 - ST elevation (STEMI) myocardial infarction of unspecified site Status: Acute (2) Elevated troponin: Code(s): R79.89 - Other specified abnormal findings of blood chemistry Status: Acute (3) Hyperlipidemia: Code(s): E78.5 - Hyperlipidemia, unspecified Status: Acute (4) Tobacco abuse: Code(s): Z72.0 - Tobacco use Status: Acute Plan 64-year-old woman who is an active tobacco smoker presents with chest pain whose clinical presentation is consistent with ST-elevation MA ST-elevation MA -there is no clear culprit and her chest discomfort had resolved -overall echo shows normal left ventricular systolic function however there is some wall motion abnormalities along the lateral fallon -given troponin trend that is not consistent with ACS and her persistent ST elevations likely will pursue outpatient cardiac MRI -will also obtain a ESR and CRP; trend troponin to peak -in the meantime, continue aspirin 81 mg p.o. daily and start Plavix 75 mg p.o. daily -complete 48 hours of anticoagulation Coronary artery disease -she has obstructive diagonal and the circumflex disease that is not ideal for PCI -continue aspirin 81 p.o. daily and Plavix 75 mg p.o. daily -anginal symptoms well controlled on metoprolol succinate 25 mg p.o. daily and isosorbide mononitrate 30 mg p.o. daily Hyperlipidemia -continue atorvastatin 80 mg every evening Hypertension -continue isosorbide mononitrate 30 mg p.o. daily and metoprolol succinate 25 p.o. daily Active tobacco abuse -tobacco cessation counseling provided Subjective Date/time seen: 04/24/25 10:16 Interval history: Chest discomfort has mostly resolved overnight. This morning she no longer had any chest discomfort. Review of Systems Cardiovascular: Cardiovascular: Reports as per HPI Respiratory: Respiratory: Reports as per HPI Exam Const: General: comfortable HENMT: Mouth: Yes moist mucous membranes Eyes: EOM: EOMs intact bilaterally Neck: Neck: no JVD Resp: Effort & Inspection: normal respiratory effort Auscultation: rales Cardio: Rate: regular rate Rhythm: regular rhythm GI: GI Palp: Yes Soft to palpation Neuro: Speech: normal speech Extrem: Other: Right groin access site clean dry without hematoma Objective Data Vital Signs Vital Signs: Vital Signs - 24 hr 06/25/25 16:03 04/23/25 16:15 04/23/25 17:28 Temperature 36.4 C 36.8 C Pulse Rate 106 H 102 H 78 Respiratory Rate 18 16 Blood Pressure 162/80 H 132/79 Pulse Oximetry 100 99 Oxygen Delivery 04/23/25 17:28 04/23/25 17:28 04/23/25 17:29 Temperature Pulse Rate 83 81 Respiratory Rate 19 Blood Pressure 132/79 Pulse Oximetry 99 Oxygen Delivery Room Air 04/23/25 17:38 04/23/25 17:53 04/23/25 18:00 Temperature Pulse Rate 81 78 74 Respiratory Rate 20 14 Blood Pressure 134/68 141/65 H Pulse Oximetry 100 99 Oxygen Delivery 04/23/25 18:00 04/23/25 18:07 04/23/25 18:08 Temperature 36.8 C Pulse Rate 78 75 Respiratory Rate 22 H 16 Blood Pressure 146/84 H 151/82 H Pulse Oximetry 99 99 Oxygen Delivery 04/23/25 18:38 04/23/25 19:08 04/23/25 20:00 Temperature Pulse Rate 74 79 Respiratory Rate 18 20 Blood Pressure 152/84 H 105/88 Pulse Oximetry 99 99 Oxygen Delivery Room Air 04/23/25 20:00 04/23/25 20:00 04/23/25 20:08 Temperature 36.7 C Pulse Rate 99 87 88 Respiratory Rate 19 24 H Blood Pressure 98/58 L 98/58 L Pulse Oximetry 98 98 Oxygen Delivery 04/23/25 21:08 04/23/25 22:00 04/23/25 22:00 Temperature Pulse Rate 83 81 81 Respiratory Rate 26 H 22 H Blood Pressure 130/66 117/63 Pulse Oximetry 99 96 Oxygen Delivery 04/23/25 22:08 04/23/25 23:08 04/24/25 00:00 Temperature Pulse Rate 83 71 Respiratory Rate 20 22 H Blood Pressure 117/63 117/64 Pulse Oximetry 98 98 Oxygen Delivery Room Air 04/24/25 00:00 04/24/25 00:00 04/24/25 02:00 Temperature 36.8 C Pulse Rate 69 79 74 Respiratory Rate 16 Blood Pressure 112/52 L Pulse Oximetry 100 Oxygen Delivery 04/24/25 02:00 04/24/25 04:00 04/24/25 04:00 Temperature 36.8 C Pulse Rate 74 68 Respiratory Rate 23 H 20 Blood Pressure 130/66 123/68 Pulse Oximetry 99 98 Oxygen Delivery Room Air 04/24/25 04:00 04/24/25 06:00 04/24/25 06:00 Temperature Pulse Rate 72 73 73 Respiratory Rate 21 H Blood Pressure 126/77 Pulse Oximetry 97 Oxygen Delivery 04/24/25 08:00 04/24/25 08:00 04/24/25 08:00 Temperature 36.8 C Pulse Rate 77 77 77 Respiratory Rate 21 H 20 Blood Pressure 111/49 L Pulse Oximetry 99 99 Oxygen Delivery Room Air 04/24/25 08:58 04/24/25 10:00 Temperature Pulse Rate 78 87 Respiratory Rate Blood Pressure Pulse Oximetry Oxygen Delivery Intake/Output Intake/Output: Intake & Output 04/21/25 04/22/25 04/23/25 04/24/25 23:59 23:59 23:59 23:59 Intake Total 240 1608.1 Output Total 700 2400 Balance -460 -791.9 Meds/Results Medications: Active Medications Generic Name Dose Route Start Last Admin Trade Name Freq PRN Reason Stop Dose Admin Acetaminophen 650 mg 04/24/25 08:35 Acetaminophen 325 Mg Tablet PO Q4H PRN Mild Pain (1-3) or Fever Al Hydrox/Mg Hydrox/Simethicone 30 ml 04/24/25 08:35 Mag Hydrox/Al Hydrox/Simeth 30 Ml Udc PO ONCE PRN Dyspepsia Alprazolam 2 mg 04/24/25 08:34 Alprazolam (*Crx) 0.5 Mg Tablet PO QHS PRN anxiety Aspirin 81 mg 04/24/25 09:00 04/24/25 08:58 Aspirin 81 Mg Enteric Tablet PO 81 mg QAM [facility] Administration Atorvastatin Calcium 80 mg 04/23/25 18:00 04/23/25 18:19 Atorvastatin 40 Mg Tablet PO 80 mg EVENING NICOLASA Administration Bisacodyl 5 mg 04/24/25 08:35 Bisacodyl 5 Mg Tablet Ec PO DAILY PRN Constipation Clopidogrel Bisulfate 75 mg 04/25/25 09:00 Clopidogrel Bisulfate 75 Mg Tablet PO QAM [facility] Cyclobenzaprine HCl 10 mg 04/24/25 08:34 Cyclobenzaprine Hcl 10 Mg Tablet PO TID PRN muscle spasm Enoxaparin Sodium 72 mg 04/24/25 11:00 Enoxaparin 1 Mg/Kg SUB-Q 04/24/25 21:01 Q12HR NICOLASA Hydroxyzine HCl 100 mg 04/23/25 21:00 04/23/25 20:40 Hydroxyzine Hcl 25 Mg Tablet PO 100 mg QHS NICOLASA Administration Isosorbide Mononitrate 30 mg 04/23/25 17:25 04/24/25 08:59 Isosorbide Mononitrate 30 Mg Tab.Er.24h PO 30 mg QAM NICOLASA Administration Melatonin 3 mg 04/24/25 08:35 Melatonin 3 Mg Tablet PO HS PRN insomnia Metoprolol Succinate 25 mg 04/24/25 09:00 04/24/25 08:58 Metoprolol Succinate Ext Rel 25 Mg Tabcr PO 25 mg QAM NICOLASA Administration Multivitamins Therapeutic 1 tablet 04/24/25 09:00 04/24/25 08:59 Multivitamins Therapeutic Tab (*Bkc) PO 1 tablet DAILY NICOLASA Administration Ondansetron HCl 4 mg 04/24/25 08:35 Ondansetron Inj 4 Mg/2 Ml Vial IV PUSH Q12HR PRN Nausea And Vomiting Perflutren Lipid Microsphere 0 ml 04/23/25 16:16 Perflutren Lipid Microspheres 1.5 Ml Vial Diluted To 10 Ml Total Volume IV PUSH 04/26/25 16:16 ONCE PRN adequate visualization Protocol Labs Labs: Laboratory Results - last 24 hr 04/23/25 04/23/25 04/23/25 16:17 16:17 18:17 WBC 10.3 H 10.7 H RBC 5.86 H 5.15 Hgb 17.5 H 15.5 H Hct 52.4 H 45.4 MCV 89.4 88.2 MCH 29.9 30.1 MCHC 33.4 34.1 RDW 13.3 13.2 Plt Count 212 182 MPV 10.8 H 10.9 H Immature Gran % (Auto) 0.3 0.4 Neut % (Auto) 73.5 H 69.3 Lymph % (Auto) 18.0 L 22.9 [place] % (Auto) 7.2 6.7 Eos % (Auto) 0.4 0.3 Baso % (Auto) 0.6 0.4 Lymph # (Auto) 1.86 2.46 [place] # (Auto) 0.7 H 0.7 H Eos # (Auto) 0.0 0.0 Baso # (Auto) 0.1 0.0 Abs Immat Gran (auto) 0.03 0.04 H Absolute Neuts (auto) 7.6 H 7.5 H Absolute Nucleated RBC 0.000 0.000 Nucleated RBC % 0.0 0.0 % Immature Plt Fraction 6.9 PT 13.1 14.0 INR 1.0 1.1 APTT 29.3 54.6 H Sodium 134 L Potassium 4.4 Chloride 102 Carbon Dioxide 21 L Anion Gap 11 BUN 14 Creatinine 0.79 Estim Creat Clear Calc 58 Estimated GFR > 60 Glucose 127 H Hemoglobin A1c 5.4 Calcium 9.4 Magnesium 2.0 Cancelled Total Bilirubin 0.5 AST 52 H ALT 24 Alkaline Phosphatase 105 Troponin I 1.260 H* NT-Pro-B Natriuret Pep 3100 H Total Protein 8.1 Albumin 4.4 Triglycerides 158 H Cholesterol 232 H LDL Cholesterol Direct 123 HDL Direct 62 Lipase 92 Nasal MRSA (PCR) 04/23/25 04/24/25 04/24/25 18:36 07:05 07:06 WBC 8.4 RBC 5.05 Hgb 15.1 H Hct 45.2 MCV 89.5 MCH 29.9 MCHC 33.4 RDW 13.2 Plt Count 192 MPV 10.8 H Immature Gran % (Auto) 0.2 Neut % (Auto) 62.0 Lymph % (Auto) 27.4 [place] % (Auto) 8.9 H Eos % (Auto) 0.8 Baso % (Auto) 0.7 Lymph # (Auto) 2.31 [place] # (Auto) 0.8 H Eos # (Auto) 0.1 Baso # (Auto) 0.1 Abs Immat Gran (auto) 0.02 Absolute Neuts (auto) 5.2 Absolute Nucleated RBC 0.000 Nucleated RBC % 0.0 % Immature Plt Fraction PT INR APTT 44.3 H Sodium 134 L Potassium 4.2 Chloride 101 Carbon Dioxide 25 Anion Gap 8 BUN 13 Creatinine 0.76 Estim Creat Clear Calc 60 Estimated GFR > 60 Glucose 106 Hemoglobin A1c Calcium 9.1 Magnesium Total Bilirubin 0.7 AST 46 H ALT 22 Alkaline Phosphatase 94 Troponin I 2.730 H* NT-Pro-B Natriuret Pep Total Protein 6.4 Albumin 3.7 Triglycerides Cholesterol LDL Cholesterol Direct HDL Direct Lipase Nasal MRSA (PCR) Not detected
[2025-04-24] MEDS: ENOXAPARIN 80 MG/0.8 ML SYRINGE 72 MG SUB-Q ×2 (11:08→21:30)
[2025-04-24 15:37] LABS: Erythrocyte Sedimentation Rate 2 mm/hr (0-20)
[2025-04-24] MEDS: ATORVASTATIN 40 MG TABLET 80 MG PO (17:48)
[2025-04-24] MEDS: hydrOXYzine HCL 25 MG TABLET 100 MG PO (21:30)
[2025-04-25] VITALS (7 sets, daily range): BP systolic 108–121; BP diastolic 58–75; PULSE 60–74; RESP 18–24; TEMP 36.7; O2SAT 96–98
[2025-04-25 04:42] LABS: Basophils Absolute Auto 0.1 K/mm3 (0.0-0.1); Eosinophils Absolute Auto 0.1 K/mm3 (0-0.3); Eosinophils Percent Auto 1.3 % (0-4.4); Hematocrit 44.9 % (37.0-47.0); Hemoglobin 15.1 g/dL (12.0-15.0); Immature Granulocyte Absolute 0.03 K/mm3 (0.00-0.031); Immature Granulocyte Percent A 0.4 % (0-0.5); Lymphocytes Absolute Auto 2.49 K/mm3 (0.9-3.2); Mean Corpuscular HGB Conc 33.6 g/dl (32-36); Mean Corpuscular Volume 89.1 fl (80-100); Monocytes Absolute Auto 0.8 K/mm3 (0.1-0.6); Neutrophils Absolute Auto 3.5 K/mm3 (1.3-6.7); Neutrophils Percent Auto 50.3 % (45.5-73.1); Platelet Count Result 179 k/mm3 (150-375); Red Blood Count 5.04 M/mm3 (4.2-5.4); Red Cell Distribution Width 13.1 % (11.5-14.5); White Blood Count 6.9 K/mm3 (4.5-10.0)
[2025-04-25 05:03] LABS: Band Neutrophils Percent 0 % (0-6)
[2025-04-25 05:04] LABS: Anisocytosis 1+; Hypochromasia 1+; Platelet Estimate Slightly Decreased (Adequate); Schistocytes None Seen
[2025-04-25 05:14] LABS: Anion Gap 7 mmol/L (4-12); Blood Urea Nitrogen 16 mg/dL (7-17); Calcium 9.4 mg/dL (8.4-10.2); Carbon Dioxide 28 mmol/L (22-30); Chloride 98 mmol/L (98-107); Estimated CRCL calculation 51 ml/min; Estimated Glomerular Filt Rate > 60; Glucose 101 mg/dL (65-110); Magnesium 1.8 mg/dL (1.6-2.3); Potassium 4.1 mmol/L (3.4-5.0); Sodium 133 mmol/L (137-145)
[2025-04-25] MEDS: ISOSORBIDE MONONITRATE 30 MG TAB.ER.24H PO (09:01)
[2025-04-25] MEDS: CLOPIDOGREL BISULFATE 75 MG TABLET PO (09:01)
[2025-04-25] MEDS: ASPIRIN 81 MG ENTERIC TABLET PO (09:01)
[2025-04-25] MEDS: METOPROLOL SUCCINATE EXT REL 25 MG TABCR PO (09:01)
[2025-04-25] MEDS: MULTIVITAMINS THERAPEUTIC TAB (*BKC) 1 TABLET PO (09:01)
--- NOTE | 2025-04-25 10:10 | PM.DS ---
DS: Admitting Diagnosis Discharge Date 04/25/2025 Admitting Diagnosis STEMI DS: Summary Hospital Course Reason for hospitalization: STEMI Hospital Course: 64-year-old woman who is an active tobacco smoker presented with chest pain whose clinical presentation was consistent with ST-elevation DE ST-elevation DE -There was no clear culprit and her chest discomfort had resolved -Overall echo shows normal left ventricular systolic function however there is some wall motion abnormalities along the lateral fallon -Given troponin trend that is not consistent with ACS and her persistent ST elevations likely will pursue outpatient cardiac MRI -Continue aspirin 81 mg p.o. daily and Plavix 75 mg p.o. daily -Completed 48 hours of anticoagulation Coronary artery disease -She has obstructive diagonal and circumflex disease that is not ideal for PCI -Continue aspirin 81 p.o. daily and Plavix 75 mg p.o. daily -Anginal symptoms well controlled on metoprolol succinate 25 mg p.o. daily and isosorbide mononitrate 30 mg p.o. daily Hyperlipidemia -continue atorvastatin 80 mg every evening Hypertension -continue isosorbide mononitrate 30 mg p.o. daily and metoprolol succinate 25 p.o. daily Active tobacco abuse -tobacco cessation counseling provided Status at Discharge Cognitive/behavioral status at discharge: Stable Functional status at discharge: independent ambulation Overall status at discharge: patient is back to baseline Time Spent with Patient Time attestation: Total time spent providing and/or coordinating discharge services: Exam Const: General: comfortable and no acute distress HENMT: Mouth: Yes moist mucous membranes Eyes: General: appearance normal, both eyes and all related structures Sclera: sclerae normal Neck: Neck: supple Resp: Effort & Inspection: normal respiratory effort Cardio: Rate: regular rate Rhythm: regular rhythm Skin: General skin exam: normal color Psych: Mental Status: mental status grossly normal Affect: normal affect DS: Data Data Completed and Pending Completed studies during hospitalization: Cardiac Cath Procedure Note Date of procedure:: 04/23/25 Performing physician:: CATHETERIZATION LABORATORY REPORT Procedure Date: 04/23/2025 Referring Physician: Dr. French Anesthesia: Versed and Fentanyl were ordered and given in my presence at 1632, procedure ended at 1652. Supervision of nurse, Irma Maldonado monitored moderate sedation with 2mg Versed and 100mcg Fentanyl was provided for 20 minutes. Pre-op Diagnosis: ST-elevation DE Post-op Diagnosis: Multivessel coronary artery disease Procedure(s): Left heart catheterization with coronary angiography Ultrasound-guided arterial access Angio-Seal closure device Access Site: Right common femoral artery Brief History and Clinical Indications: 64-year-old woman who is an active tobacco smoker presents with chest pain whose presentation is consistent with ST-elevation DE for which she was emergently brought to the cardiac catheterization lab to define her coronary anatomy with possible PCI. All risks, benefits and alternatives to left heart catheterization with or without percutaneous coronary intervention was discussed at length with the patient. Risk of complications including but not limited to bleeding, infection, arrhythmia, stroke, worsening kidney function, blood loss, groin hematoma, limb loss, emergency coronary artery bypass grafting, and even were discussed with the patient and all questions were answered. The patient understood and wished to proceed. Time out called, patient name, date of , medical record number, allergies, procedure performed, identify [employer], patient and staff member concurred with accurate data, procedure carried on. Findings: LEFT HEART CATHETERIZATION FINDINGS: 1. Left main: The left main coronary artery is widely patent without any significant obstructive disease. 2. Left anterior descending: The LAD provides an arcade of diagonals all of which are small size vessels that are <2mm diameter. The D1 vessel while small in diameter is long with a 99% ostial stenosis. KANDI 3 flow 3. Left circumflex: The left circumflex artery provides 2 OM branches. At the trifurcation where the left circumflex splits to provide the OM1 and OM2 vessels, there is a 70-80% stenosis. OM2 is approximately a 2.5mm vessel and provides a moderate size territory while OM1 is a 1.5mm size vessel supplying a small territory. KANDI 3 flow 4. Right coronary artery: The RCA is a dominant vessel with a 50% stenosis in its midbody. This is approximately a 2.5mm size vessel. KANDI 3 flow 5. Left ventricle: A. End-diastolic pressure 36 mmHg. B. LV gram deferred. C. No significant gradient across aortic valve on catheter pullback. 6. Opening AO pressure 175/83 and closing AO pressure 132/69 Description of Procedure: Informed consent signed and placed in the chart. Patient transferred to collaborating supervising physician room. Prepped and draped in usual sterile fashion. 2% lidocaine injected subcutaneously in right groin area. Ultrasound was used to identified the right common femoral artery and under ultrasound and fluoroscopy guidance, access was obtained and micro puncture sheath was inserted and exchanged out for a 6 German prelude sheath. J wire advanced under fluoroscopy. 5F diagnostic catheter engaged Right Coronary Artery. 6F EBU3.5 Guide catheter engaged Left Main Coronary Artery. Multiple orthogonal angiogram obtained and reviewed. Given the small caliber nature of her vessels, intracoronary nitroglycerin 300 mcg was given and images were re-obtained. JR4 diagnostic catheter crossed aortic valve to obtain LVEDP, LV angiogram deferred. Assessment: Multivessel CAD Post Operative Condition: Stable No significant blood loss Disposition: ICU Plan: Continue heparin drip and trend troponin to peak. Obtain a transthoracic echocardiogram. Medical management of her multivessel coronary artery disease. Mac Kaur Interventional Cardiology Summary 1. Complete two-dimensional, color flow and Doppler transthoracic echocardiogram is performed. 2. The left ventricle is normal in size and systolic function. The left ventricular ejection fraction is visually estimated to be 60-65%. There is mild hypokinesis of distal anterolateral and distal inferolateral wall. 3. The right ventricle is normal in size and systolic function. 4. There is small pericardial effusion. Left Ventricle The left ventricle is normal in size and systolic function. The left ventricular ejection fraction is visually estimated to be 60-65%. There is mild hypokinesis of distal anterolateral and distal inferolateral wall. Right Ventricle The right ventricle is normal in size and systolic function. Left Atria The left atrium is normal size. Right Atria The right atrium is normal size. Atrial Septum The atrial septum is not well visualized. Aortic Valve The aortic valve is not well visualized. Doppler gradients across the valve does not suggest hemodynamically significant stenosis. Pulmonic Valve The pulmonic valve is not well visualized. There is no color Doppler evidence of pulmonic valve regurgitation. Mitral Valve The mitral valve leaflets are sclerotic. There is mitral annular calcification. There is no mitral stenosis. There is no mitral regurgitation. Tricuspid Valve The tricuspid valve is grossly normal. There is trace tricuspid regurgitation. Pericardium/Pleural There is small pericardial effusion. Inferior Vena Cava Normal inferior vena cava with >50% collapse upon inspiration consistent with normal right atrial pressure, 3 mmHg. Aorta The aortic root at the level of the sinus of Valsalva measures 3.2 cm in diameter. Labs on day of discharge: Labs from last 24 hours 04/25/25 04/24/25 04:26 15:11 WBC 6.9 RBC 5.04 Hgb 15.1 H Hct 44.9 MCV 89.1 MCH 30.0 MCHC 33.6 RDW 13.1 Plt Count 179 MPV 11.0 H Immature Gran % (Auto) 0.4 Neut % (Auto) 50.3 Lymph % (Auto) 36.0 [place] % (Auto) 11.0 H Eos % (Auto) 1.3 Baso % (Auto) 1.0 Lymph # (Auto) 2.49 [place] # (Auto) 0.8 H Eos # (Auto) 0.1 Baso # (Auto) 0.1 Abs Immat Gran (auto) 0.03 Absolute Neuts (auto) 3.5 Absolute Nucleated RBC 0.000 Band Neutrophils % 0 Nucleated RBC % 0.0 Platelet Estimate Slightly decreased Hypochromasia 1+ Anisocytosis 1+ Schistocytes None seen ESR 2 Sodium 133 L Potassium 4.1 Chloride 98 Carbon Dioxide 28 Anion Gap 7 BUN 16 Creatinine 0.91 Estim Creat Clear Calc 51 Estimated GFR > 60 Glucose 101 Calcium 9.4 Magnesium 1.8 Troponin I 2.240 H* C-Reactive Protein 3.0 H Discharge Plan Discharge Attending physician on discharge: Chris Mcdaniel Discharging Clinician: Chris Mcdaniel Anticipated Discharge Date/Time: 04/25/25 10:08 Patient Disposition: Home Activity: february shower Diet: heart healthy Patient Instructions: Antibiotic Form, Metoprolol (By mouth), Heparin (By injection), Isosorbide Mononitrate (By mouth), Atorvastatin (By mouth), Heart Attack (GEN), Help Prevent Suicide (GEN), Heart Catheterization (GEN), Angio-Seal (GEN), Suicide Prevention (GEN), Depression in Older Adults (GEN) Patient Language: Swedish Stand Alone Forms: General Discharge Information Follow-up/Referrals: Mac Kaur MD [Physician] - Discharge Medications: New aspirin 81 mg Tablet,Delayed Release (Dr/Ec) 81 mg PO QAM Qty: 90 3RF atorvastatin [Lipitor] 80 mg tablet 80 mg PO EVENING Qty: 90 3RF isosorbide mononitrate 30 mg Tablet Extended Release 24 Hr 30 mg PO QAM Qty: 90 3RF clopidogrel 75 mg Tablet 75 mg PO QAM Qty: 90 3RF metoprolol succinate [Toprol XL] 25 mg Tablet Extended Release 24 Hr 25 mg PO QAM Qty: 90 3RF Continued alprazolam [Xanax] 2 mg tablet 2 mg PO QHS PRN (Reason: anxiety) hydroxyzine HCl 50 mg tablet 100 mg PO QHS cyclobenzaprine 10 mg tablet 10 mg PO TID PRN (Reason: muscle spasm) Discontinued multivitamin [Multiple Vitamins] Tablet 1 tablet PO DAILY ibuprofen 400 mg tablet 800 mg PO TID PRN (Reason: pain) Date of admission: 04/23/25 16:08 Primary Care Provider: LOREE,ANATOLIY Admitting Provider: Alvina Lane Attending physician on admission: Alvina Lane Condition: Stable
== END 2025-04-25 10:45 | disposition home or self-care (01) | DRG 282 ==
LOC: ANHED 16:15 → ANHICU 16:28
PROVIDERS: Emergency Medicine; Internal Medicine; Admitting Provider Internal Medicine; Emergency Provider Student in an Organized Health Care Education/Training Program; PCP Nurse Practitioner Family; Visit Provider Internal Medicine
PROC: 4A023N7 Measurement of Cardiac Sampling and Pressure, Left Heart, Percutaneous Approach (ICD-10-PCS; CPT 93452; principal; 2025-04-23 16:30)
PROC: 4A023N7 Measurement of Cardiac Sampling and Pressure, Left Heart, Percutaneous Approach (ICD-10-PCS; 2025-04-23 16:30)
DX: I21.3 ST elevation (STEMI) myocardial infarction of unspecified site (principal); I25.10 Atherosclerotic heart disease of native coronary artery without angina pectoris; I10 Essential (primary) hypertension; E78.5 Hyperlipidemia, unspecified; E04.1 Nontoxic single thyroid nodule; F17.210 Nicotine dependence, cigarettes, uncomplicated; Z85.41 Personal history of malignant neoplasm of cervix uteri
CPT/HCPCS: 36415; 80048; 80053; 80061; 83036; 83690; 83735; 83880; 84484; 85025; 85055; 85610; 85652; 85730; 86140; 87641; 93005; 93306; 93458; 96374; 99285; A9270; C1760; C1887; C1894; G0269; J1644; J1650; J1938; J2003; J2250; J2305; J3010; J7030; J7040